=== PATIENT | female | born 1960 | race Caucasian/White ===

== ENCOUNTER 2018-11-05 09:38 | Observation (INO) ==
[2018-11-05 10:51] LABS: Basophils # 0.1 10*3/uL (0.0-0.2); Basophils % 1.1 % (0.0-0.8); Eosinophils # 0.1 10*3/uL (0.0-0.87); Eosinophils % 1.6 % (0.00-10.9); Hematocrit 39.8 VOL% (35.7-47.0); Hemoglobin 12.4 GM/DL (12.0-16.0); Immature Granulocytes % 0.3 %; Immature Granulocytes Absolute 0.02 #; Lymphocytes # 3.7 10*3/uL (1.4-4.0); Mean Corpuscular HGB Conc 31.2 GM/DL (32-36); Mean Corpuscular Volume 94.3 FL (87-102); Mean Platelet Volume 9.1 FL (9.6-12.0); Monocytes % 7.6 % (1.7-12.7); Neutrophils % 37.4 % (38.7-73.9); Platelet Count 267 T/CUMM (130-400); Red Blood Count 4.22 MC/CUMM (3.8-5.5); Red Cell Distribution Width 13.2 % (9.3-17.3); White Blood Count 7.1 T/CUMM (4-12)
[2018-11-05 11:09] LABS: Alanine Aminotransferase 18 U/L (13-56); Albumin 4.1 G/DL (3.4-5.0); Alkaline Phosphatase 48 U/L (45-117); Apearance,Urine CLEAR (Clear); Aspartate Amino Transferase 16 U/L (0-37); Bacteria,Urine Occasional /HPF (Few); Bilirubin,Total < 0.39 MG/DL (0.2-1.0); Bilirubin,Urine Negative (Negative); Blood Urea Nitrogen 11 MG/DL (7-18); Blood, Urine Negative (Negative); Calcium 9.1 MG/DL (8.5-10.1); Glucose 111 MG/DL (74-106); Glucose,Urine (UA) Negative (Negative); Ketones,Urine Negative (Negative); Mucus,Urine Occasional /LPF (Occasional); Nitrite,Urine Negative (Negative); Osmolality,Calculated 278.4 MOS/KG (273-304); Protein,Urine Negative; RBC,Urine 1 /HPF (0-4); Total Protein 6.9 G/DL (6.4-8.3); Urine Color Yellow (Yellow); Urine Specific Gravity 1.012 (1.001-1.035); Urine Urobilinogen < 2.0 EU/DL (0.2-1.0); WBC,Urine 1 /HPF (0-6)
[2018-11-05 12:39] LABS: Eosinophils 4 % (0-10); Lymphocytes 49 % (20-55); Segmented Neutrophils 43 % (50-85); Total Cells Counted 100
[2018-11-05 12:40] LABS: Acanthocytes Few; Atypical Lymphocytes Few; Microcytosis Slight
[2018-11-05 12:41] LABS: Platelet Estimate Normal
[2018-11-05] MEDS ORDERED: ACETAMINOPHEN 325 MG TABLET PO PRN (12:50)
[2018-11-05] MEDS ORDERED: ONDANSETRON 4 MG/2 ML VIAL IV PRN (12:50)
[2018-11-05] MEDS ORDERED: MORPHINE 4 MG/1 ML VIAL IV PRN (12:50)
[2018-11-05] MEDS ORDERED: ZALEPLON 5 MG CAPSULE PO PRN (12:50)
[2018-11-05] MEDS ORDERED: LACTULOSE 20 GM/30 ML UDCUP PO PRN (12:50)
[2018-11-05] MEDS: PANTOPRAZOLE 40 MG TABLET PO SCH (14:41)
[2018-11-05] MEDS: ASPIRIN EC 81 MG TABLET PO SCH (14:41)
[2018-11-05] MEDS: METOPROLOL SUCCINATE XL 25 MG TABLET PO SCH (14:41)
[2018-11-05] MEDS ORDERED: ENOXAPARIN 100 MG/ML SYRINGE SUBCUT SCH (16:30)
[2018-11-05] MEDS: ROSUVASTATIN 20 MG TABLET PO SCH (21:09)
[2018-11-05] MEDS: ENOXAPARIN 40 MG/0.4 ML SYRINGE SUBCUT SCH (23:17)
[2018-11-06 05:16] LABS: Basophils # 0.1 10*3/uL (0.0-0.2); Basophils % 0.9 % (0.0-0.8); Eosinophils # 0.2 10*3/uL (0.0-0.87); Eosinophils % 3.3 % (0.00-10.9); Hemoglobin 11.9 GM/DL (12.0-16.0); Immature Granulocytes % 0.2 %; Immature Granulocytes Absolute 0.01 #; Lymphocytes # 2.8 10*3/uL (1.4-4.0); Lymphocytes % 50.5 % (21.3-54.2); Mean Corpuscular HGB Conc 31.3 GM/DL (32-36); Mean Corpuscular Volume 93.6 FL (87-102); Mean Platelet Volume 9.6 FL (9.6-12.0); Neutrophils % 35.1 % (38.7-73.9); Platelet Count 226 T/CUMM (130-400); Red Blood Count 4.06 MC/CUMM (3.8-5.5); Red Cell Distribution Width 13.3 % (9.3-17.3); White Blood Count 5.5 T/CUMM (4-12)
[2018-11-06 05:29] LABS: Calcium 9.1 MG/DL (8.5-10.1); Osmolality,Calculated 277.4 MOS/KG (273-304); Risk Ratio 2.09
[2018-11-06 05:56] LABS: Band Neutrophils 4 % (0-10); Eosinophils 4 % (0-10); Lymphocytes 52 % (20-55); Segmented Neutrophils 30 % (50-85); Total Cells Counted 100
[2018-11-06 05:57] LABS: Hypochromasia 2+; Ovalocytes 1+; Platelet Estimate Normal
[2018-11-06] MEDS ORDERED: DIAZEPAM 5 MG TABLET PO ONE (08:57)
[2018-11-06] MEDS ORDERED: MAGNESIUM SULF RIDER 2 GM in PREMIX 1 EACH IV PRN (08:57)
[2018-11-06] MEDS ORDERED: diphenhydrAMINE CAP 25 MG CAPSULE PO ONE (08:57)
[2018-11-06] MEDS ORDERED: POTASSIUM CHLORIDE RIDER 10 MEQ in PREMIX 1 EACH IV PRN (08:57)
[2018-11-06] MEDS: SODIUM CHLORIDE 0.9% 1,000 ML IV SCH ×4 (09:11→22:33)
[2018-11-06] MEDS: METOPROLOL SUCCINATE XL 25 MG TABLET PO SCH (11:18)
[2018-11-06] MEDS: PANTOPRAZOLE 40 MG TABLET PO SCH (11:18)
[2018-11-06] MEDS: ASPIRIN EC 81 MG TABLET PO SCH (11:18)
[2018-11-06] MEDS: ROSUVASTATIN 20 MG TABLET PO SCH (11:19)
[2018-11-06] MEDS ORDERED: LIDOCAINE 1% 20 ML VIAL ONE (11:23)
[2018-11-06] MEDS ORDERED: HEPARIN/NACL 0.9% 2 UNITS/ML 1,000 ML IV ONE (11:23)
[2018-11-06] MEDS ORDERED: MIDAZOLAM 2 MG/2 ML VIAL ONE (11:29)
[2018-11-06] MEDS ORDERED: HYDROmorphone 2 MG/1 ML VIAL ONE (11:29)
[2018-11-06] MEDS ORDERED: diphenhydrAMINE 50 MG/1 ML VIAL ONE (11:50)
[2018-11-06] MEDS: ENOXAPARIN 40 MG/0.4 ML SYRINGE SUBCUT SCH (12:17)
[2018-11-06] MEDS ORDERED: ZOLPIDEM 5 MG TABLET PO PRN (16:36)
[2018-11-06] MEDS ORDERED: ZALEPLON 5 MG CAPSULE PO PRN (17:00)
[2018-11-07 04:44] LABS: Calcium 8.3 MG/DL (8.5-10.1); Osmolality,Calculated 277.4 MOS/KG (273-304)
[2018-11-07] MEDS ORDERED: DILTIAZEM CD 120 MG CAPSULE PO SCH (09:00)
[2018-11-07] MEDS: ASPIRIN EC 81 MG TABLET PO SCH (09:11)
[2018-11-07] MEDS: PANTOPRAZOLE 40 MG TABLET PO SCH (09:11)
[2018-11-07] MEDS: SODIUM CHLORIDE 0.9% 1,000 ML IV SCH (09:13)
[2018-11-07] MEDS ORDERED: SODIUM CHLORIDE 0.9% 500 ML IV ONE (13:00)
[2018-11-07 13:48] VITALS: BP 91/52
== END 2018-11-07 14:46 | disposition home or self-care (01) ==
LOC: N.EDINP 09:38 → N.ED 09:38 → N.TELES 13:41
PROVIDERS: ADMIT Family Medicine; ATTEND Family Medicine
PROC: CLCCHCL (ICD-10-PCS; 2018-11-06 12:00)